=== PATIENT | female | born 1990 | race Hispanic/Latino ===

== ENCOUNTER 2017-01-28 21:26 | Emergency (ER) | payer SELFPAY ==
[~2017-01-28] VITALS: Ht 162.6 cm; Wt 62.7 kg
[2017-01-28 21:44] VITALS: BP 100/62; PULSE 85; RESP 18; O2SAT 98
--- NOTE | 2017-01-28 22:31 | ED.REPORT ---
HPI-General Illness Date of Service Jan 28, 2017 ED Provider: Travis Schneider DO Pt is a 26 y/o female w/ a hx of HTN, recently diagnosed IDDM, presenting to the ED due to hyperglycemia of ~500 today. The patient was diagnosed with diabetes yesterday and was started on Levemir insulin 12 units once each day. She did not give herself the insulin today because "her blood sugar level hasn' t decreased". Tonight, she has been experiencing [place], eye irritation, and myalgias. Pt denies fever, SOB, CP, abdominal pain, nausea, vomiting. She states she has a yeast infection currently and was started on Metronidazole by her PCP. Nursing Notes Stated Complaint: HIGH BLOOD SUGAR Chief Complaint: General Complaint Nursing Notes Reviewed: Yes Allergies: Coded Allergies: No Known Allergies (Unverified , 01/28/17) General Time Seen by MD: 22:16 Chief Complaint Other (High blood sugar) Hx Obtained From: Patient Arrived By: Walk-in Sudden in Onset?: No Onset Occurred: 5 - 8 hours ago Symptom Duration: Since onset Location: : Head Quality: Aching Severity: Current: Moderate Severity: Maximum: Moderate Past Medical History Past Medical History Hypertension Insulin dependent diabetes Past Surgical History None reported Smoking History Former Smoker Ambulatory Status Independent Review of Systems Full Review of Systems Constitutional: Denies: Chills, Fever Eyes: Reports: Eye pain bilateral Respiratory: Denies: Shortness of breath Cardiovascular: Denies: Chest pain GI: Denies: Abdominal pain, Nausea, Vomiting Musculoskeletal: Reports: Myalgia Neurologic: Reports: Headache, Denies: Focal weakness, Numbness Complete sys rev & neg: except as marked. Physical Exam Vital Signs Vital Signs Date Time Temp Pulse Resp B/P Pulse Ox O2 Delivery O2 Flow Rate FiO2 01/29/17 00:50 70 16 106/68 100 Room Air 01/28/17 21:44 36.8 85 18 100/62 98 Room Air Initial VS: Reviewed, Vital signs normal Head / Eyes: Atraumatic, Normocephalic ENT: Mucous membranes moist, Conjunctiva normal, No scleral icterus Neck: Supple, Full range of motion Respiratory: Breath sounds normal, Clear to auscultation, No respiratory distress Cardiovascular: Regular rate & rhythm, Heart sounds normal, Intact distal pulses Abdomen / GI: Soft, Non-tender, No guarding, No rebound, No distention Extremities: Vascular intact, Neuro intact, No swelling Skin: Warm, Dry, No cyanosis Neurologic: Alert, Oriented, Nonfocal Psychiatric: Mood/affect normal, Behavior normal, Normal thought content General/Constitutional: Awake, Alert, No acute distress, Well appearing, Cooperative, Not toxic appearing Interpretation & Diagnostics Lab Results Interpretation Result Diagram: 01/28/17 2312 01/28/17 2312 Test 01/28/17 23:12 01/29/17 00:40 White Blood Count 10.3th/mm3 (3.8-10.1) Red Blood Count 4.34mil/mm3 (3.90-5.20) Hemoglobin 12.9g/dL (12.0-15.6) Hematocrit 36.7% (35.0-46.0) Mean Corpuscular Volume 84.6fL (81-100) Mean Corpuscular Hemoglobin 29.7pg (27.0-35.0) Mean Corpuscular Hemoglobin Concent 35.1% (32.0-37.0) Red Cell Distribution Width 12.1% (12.3-15.4) Platelet Count 260bil/L (150-400) Neutrophils (%) (Auto) 50.6% (40-74) Lymphocytes (%) (Auto) 37.0% (14-46) Monocytes (%) (Auto) 4.8% (4-12) Eosinophils (%) (Auto) 6.7% (0-5) Basophils (%) (Auto) 0.7% (0-3) Sodium Level 130mEq/L (134-144) Potassium Level 3.8mEq/L (3.5-5.2) Chloride Level 94mEq/L (97-108) Carbon Dioxide Level 21mmol/L (18-29) Blood Urea Nitrogen 13mg/dL (6-20) Creatinine 0.63mg/dL (0.57-1.00) Estimat Glomerular Filtration Rate 164mL/min (>59) Glucose Level 412mg/dL (60-99) Calcium Level 9.4mg/dL (8.5-10.1) Total Bilirubin 0.2mg/dL (0.0-1.2) Aspartate Amino Transf (AST/SGOT) 20U/L (0-50) Alanine Aminotransferase (ALT/SGPT) 17U/L (0-32) Alkaline Phosphatase 119U/L (25-150) Total Protein 7.8g/dL (6.4-8.4) Albumin 4.3g/dL (3.4-5.0) Human Chorionic Gonadotropin, Qual Negative (Negative) Ketones Negative (Negative) Urine Color Straw (YELLOW) Urine Appearance Clear (CLEAR,HAZY) Urine pH 5.5 (5.0-8.0) Urine Specific [place] 1.040 (1.003-1.035) Urine Protein Negativemg/dL (NEG,TRACE) Urine Glucose (UA) >1000mg/dL (NEGATIVE) Urine Ketones >80mg/dL (NEGATIVE) Urine Occult Blood Negative (NEGATIVE) Urine Nitrite Negative (NEGATIVE) Urine Bilirubin Negative (NEGATIVE) Urine Urobilinogen Normalmg/dL (NORMAL) Urine Leukocyte Esterase Negative (NEGATIVE) Urine RBC 0-2/hpf (0-2) Urine WBC 0-5/hpf (0-5) Urine Epithelial Cells Few/hpf (NONE-MOD) Urine Crystals None seen (NONE SEEN) Urine Bacteria Few/hpf (NONE-FEW) Urine Hyaline Casts None/lpf (NONE) Urine Granular Casts None seen (NONE SEEN) Urine Waxy Casts None seen (NONE SEEN) Urine Red Blood Cell Casts None seen (NONE SEEN) Urine White Blood Cell Casts None seen (NONE SEEN) Urine Mucus None seen (None Seen) Urine Trichomonas None seen (NONE SEEN) Urine Yeast None (NONE SEEN) Urinalysis Comment None Urine Culture Reflexed Not indicated Hold Urine Received (Received) Lab Results Interpretation: Ketones negative Anion gap = 15 Pulse Oximetry Interpretation Pulse Oximetry: Pulse Ox normal, On room air CBC Interpretation CBC normal BMP / CMP Interpretation BMP/CMP normal except, Na low (Corrects to normal with glucose), Glucose elevated Re-Eval/Medical Decision Med Decision/Clinical Course Resolution of symptoms with good hydration. Blood sugar came down nicely. Labs reassuring. No signs of DKA. Her headache was mild. No meningitis. Headache was not thunderclap nor was it at all worrisome for subarachnoid hemorrhage or meningitis. She was dehydrated and hyperglycemic and this was adequately treated. At discharge she is pain-free and her blood sugar was much better. She is going to follow the diabetic diet and have close outpatient follow-up. Time of Eval: 00:48 Patient Status: Condition improved, Moderate relief, Pain improved Re-Evaluation/Progress Note: Pt rechecked. Informed pt of plan for discharge. Pt understands and agrees with plan for discharge. F/U instructions and RTER warnings given. All questions addressed. Counseled Regarding: Diagnosis, Lab results, Need for follow-up, When/why to return to ED Discharge & Departure Primary Impression: Hyperglycemia Additional Impression: IDDM (insulin dependent diabetes mellitus) Disposition: Home Discharge Condition All VS Reviewed: Yes Condition: Stable Patient Instructions: Diabetes and Your Skin (ED), Diabetic Hyperglycemia (DC) Additional Instructions: Labwork was reassuring. You were given Fluconazole in the ED to treat a possible yeast infection. Use your insulin as prescribed. Do not miss any doses. Follow a diabetic diet. Make sure you stay well hydrated. Return to the emergency department if you experience any new or worsening symptoms. Follow-up with your primary care doctor next week for a recheck. Referrals: Migdalia Johnson MD Scribe Attestation Portions of this note were transcribed by Roel Street. I, Dr. Schneider personally performed the history, physical exam and medical decision-making; I reviewed and confirmed the accuracy of the information in the transcribed note. copies to: Migdalia Johnson MD, Todd P DO Jan 28, 2017 22:[address] Jan 28, 2017 22:39
[2017-01-28] MEDS ORDERED: 0.9% Sodium Chloride 1,000 ML IV SCH (22:45)
[2017-01-28 23:16] LABS: BASOPHILS % (AUTO) 0.7 % (0-3); EOSINOPHILS % (AUTO) 6.7 % (0-5); MONOCYTES % (AUTO) 4.8 % (4-12); Mean Corpuscular Hemoglobin 29.7 pg (27.0-35.0); Mean Corpuscular Volume 84.6 fL (81-100); NEUTROPHILS % (AUTO) 50.6 % (40-74); Platelet Count 260 bil/L (150-400)
[2017-01-29 00:50] VITALS: BP 106/68; PULSE 70; RESP 16; O2SAT 100
[2017-01-29 00:59] LABS: APPEARANCE,URINE CLEAR (CLEAR,HAZY); COLOR,URINE STRAW (YELLOW); OCCULT BLOOD,URINE NEGATIVE (NEGATIVE); PH,URINE 5.5 (5.0-8.0); UROBILINOGEN,URINE NORMAL (NORMAL)
[2017-01-29 02:00] VITALS: BP 110/72; PULSE 83; RESP 16; O2SAT 100
== END 2017-01-29 01:40 | disposition home or self-care (01) ==
LOC: SED 21:26
DX: E11.65 Type 2 diabetes mellitus with hyperglycemia (principal); I10 Essential (primary) hypertension; Z87.891 Personal history of nicotine dependence; Z79.4 Long term (current) use of insulin
CPT/HCPCS: 36415; 80053; 81000; 82009; 82948; 84703; 85025; 96361; 96374; 99285; J1885; J7030